=== PATIENT | male | born 1960 | race Caucasian/White ===

== ENCOUNTER 2024-06-11 11:45 | Emergency (ER) | payer OTHER ==
[~2024-06-11] VITALS: Ht 182.9 cm; Wt 120.2 kg
[2024-06-11 12:45] VITALS: PULSE 62; RESP 15; TEMP 97.4
[2024-06-11] MEDS ORDERED: SODIUM CHLORIDE 0.9% 1000ML 1,000 ML IV ONE (13:00)
[2024-06-11 13:41] LABS: BASOPHILS # (AUTO) 0.1 (0.0-0.1); BASOPHILS % 0.7 % (0.0-1.0); EOSINOPHILS # (AUTO) 0.3 (0.0-0.4); EOSINOPHILS % 4.4 % (0.0-6.0); HEMOGLOBIN 14.6 g/dL (14.0-18.0); LYMPHOCYTES # (AUTO) 1.8 (1.0-3.2); LYMPHOCYTES % 23.7 % (18.0-39.1); MEAN CORPUSCULAR HEMOGLOBIN 33.1 pg (28-32); MEAN CORPUSCULAR HGB CONC 33.2 g/dL (31-35); MEAN CORPUSCULAR VOLUME 99.8 fL (81-99); MONOCYTES # (AUTO) 0.6 (0.2-0.8); MONOCYTES % 7.3 % (4.4-11.3); NEUTROPHILS # (AUTO) 4.8 (2.1-6.9); NEUTROPHILS % 63.2 % (38.7-80.0); PLATELET COUNT 187 x10e3/uL (140-360); RED BLOOD COUNT 4.41 x10e6/uL (4.3-5.7); RED CELL DISTRIBUTION WIDTH 12.2 % (11.7-14.4); WHITE BLOOD COUNT 7.51 x10e3/uL (4.8-10.8)
[2024-06-11 13:51] LABS: INR 0.94
[2024-06-11 13:52] LABS: PARTIAL THROMBOPLASTIN TIME 25.7 seconds (23.8-35.5)
[2024-06-11 13:58] LABS: ALBUMIN/GLOBULIN RATIO 1.4 (0.8-2.0); ANION GAP 15.2 mmol/L (8-16); BILIRUBIN,TOTAL 0.5 mg/dL (0.2-1.2); CALCIUM 9.5 mg/dL (8.4-10.2); CREATININE, SERUM 0.92 mg/dL (0.72-1.25); POTASSIUM 4.2 mmol/L (3.5-5.1); TOTAL PROTEIN 6.9 g/dL (6.5-8.1)
[2024-06-11] MEDS ORDERED: SODIUM CHLORIDE 0.9% 100 ML ONE (14:07)
[2024-06-11] MEDS ORDERED: IOPAMIDOL 370 MG/ML 100 ML INFUS..BTL INJ ONE (14:07)
[2024-06-11 17:14] VITALS: BP 161/93; PULSE 63; RESP 15; O2SAT 97
[2024-06-12] MEDS ORDERED: ALLOPURINOL300 MG PO (10:54)
[2024-06-12] MEDS ORDERED: FLOMAX0.4 MG PO (10:54)
[2024-06-12] MEDS ORDERED: AMLODIPINE BESY10 MG PO (10:54)
[2024-06-12] MEDS ORDERED: PANTOPRAZOLE SO40 MG PO (10:54)
[2024-06-12] MEDS ORDERED: DIOVAN160 MG PO (10:54)
[2024-06-12] MEDS ORDERED: METOPROLOL SUCC50 MG PO (10:54)
== END 2024-06-11 17:18 | disposition home or self-care (01) ==
LOC: ER 12:49
DX: K62.5 Hemorrhage of anus and rectum (principal); I10 Essential (primary) hypertension; J45.909 Unspecified asthma, uncomplicated; M10.9 Gout, unspecified
CPT/HCPCS: 36415; 74174; 80053; 83690; 85025; 85610; 85730; 99283; J7050; Q9967

== ENCOUNTER → 2024-06-13 | Day surgery (SDC) | payer OTHER ==
[~2024-06-13] MED LIST: ALLOPURINOL300 MG PO; AMLODIPINE BESY10 MG PO; DEXMEDETOMIDINE HCL 200 MCG/2 ML VIAL ONE; DIOVAN160 MG PO; FLOMAX0.4 MG PO; HYOSCYAMINE SULFATE 0.5 MG/ML INJ ONE; LIDOCAINE HCL 2% LOCAL INJ 5 ML SDV VIAL INJ ONE; METOPROLOL SUCC50 MG PO; MIDAZOLAM HCL 2 MG/2 ML VIAL ONE; PANTOPRAZOLE SO40 MG PO; PROPOFOL IV EMULSION 10 MG/ML 20 ML VIAL ONE
[2024-06-13] MEDS: LACTATED RINGER'S 1,000 ML ONE (13:46)
[2024-06-13 16:36] VITALS: TEMP 97
[2024-06-13 17:05] VITALS: BP 133/89; PULSE 73; RESP 17; O2SAT 97
== END | disposition home or self-care (01) ==
LOC: OR 13:20
PROVIDERS: ATTEND Internal Medicine Gastroenterology
DX: K62.5 Hemorrhage of anus and rectum (principal); D12.0 Benign neoplasm of cecum; D12.4 Benign neoplasm of descending colon; D12.5 Benign neoplasm of sigmoid colon; K60.2 Anal fissure, unspecified; K57.30 Diverticulosis of large intestine without perforation or abscess without bleeding; K64.8 Other hemorrhoids; K21.9 Gastro-esophageal reflux disease without esophagitis; Z71.3 Dietary counseling and surveillance; I10 Essential (primary) hypertension; Z71.89 Other specified counseling; J45.909 Unspecified asthma, uncomplicated; N40.0 Benign prostatic hyperplasia without lower urinary tract symptoms; M10.9 Gout, unspecified; Z01.810 Encounter for preprocedural cardiovascular examination; Z79.899 Other long term (current) drug therapy; Z68.30 Body mass index [BMI] 30.0-30.9, adult; Z86.16 Personal history of COVID-19
CPT/HCPCS: 45385; 93005; J1980; J2003; J2250; J2704; J7121